=== PATIENT | female | born 1940 | race Hispanic/Latino ===

== ENCOUNTER → 2018-07-02 | Outpatient (CLI) | payer OTHER | END | disposition home or self-care (01) | LOC: RAH 11:12 | PROVIDERS: ATTEND Family Medicine | DX: Z12.31 Encounter for screening mammogram for malignant neoplasm of breast (principal) | CPT/HCPCS: 77067 ==

== ENCOUNTER → 2020-03-25 | Outpatient (CLI) | payer OTHER | END | disposition home or self-care (01) | LOC: RAH 08:21 | PROVIDERS: ATTEND Family Medicine | DX: Z12.31 Encounter for screening mammogram for malignant neoplasm of breast (principal) | CPT/HCPCS: 77067 ==

== ENCOUNTER → 2023-03-23 | Outpatient (CLI) | payer OTHER | END | disposition home or self-care (01) | LOC: RAH 09:27 | PROVIDERS: ATTEND Family Medicine | DX: Z12.31 Encounter for screening mammogram for malignant neoplasm of breast (principal); Z00.00 Encounter for general adult medical examination without abnormal findings | CPT/HCPCS: 77067 ==